=== PATIENT | female | born 1955 | race Caucasian/White ===

== ENCOUNTER 2024-08-04 23:47 | Emergency (ER) | payer SELFPAY ==
[2024-08-04 23:58] VITALS: BP 87/57; PULSE 119; RESP 20; TEMP 36.9; O2SAT 100
--- NOTE | 2024-08-05 00:28 | ED_ITS ---
HPI - General Adult General Chief complaint: Epistaxis/Nosebleed Stated complaint: nose bleed Time Seen by Provider: 08/05/24 00:04 Source: patient Mode of arrival: ambulatory Limitations: no limitations History of Present Illness HPI narrative: 69-year-old female with history of frequent nosebleeds presents to the ED with nosebleed from the left nostril started 3 hours prior to arrival. No trauma or injury. No recent fever or illness. Not anticoagulated. Has seen ENT in the past. Reports that she has been told that she has a thin nasal septum and lining. She has had cautery 2-3 years ago hand found it very effective. Unfortunately, it seems to have worn off. She has been getting slight oozing of the nose daily for the past few days. She recently moved into a new place. The weather has turned very cold and dry. She reports that the area is also very dry in her new living arrangement. No breathing difficulty, fever. Does feel mildly nauseated from the blood running down the back of her throat but otherwise well. Has tried applying nasal pressure with no significant improvement. Past medical history notable for hyperlipidemia, type 2 diabetes. No known drug allergies. Nonsmoker. ROS is notable for the HEENT symptoms only. Denies other HEENT, generalized, respiratory, skin or hematological changes. Related Data Home Medications ?Medication ?Instructions ?Recorded ?Confirmed gabapentin 100 mg capsule 200 mg PO BID 08/05/24 08/05/24 metformin 500 mg tablet 500 mg PO BID 08/05/24 08/05/24 rosuvastatin 10 mg tablet 10 mg PO QPM 08/05/24 08/05/24 trazodone 100 mg tablet 100 mg PO QPM 08/05/24 08/05/24 Allergies Allergy/AdvReac Type Severity Reaction Status Date / Time erythromycin base Allergy Unknown Verified 08/05/24 00:38 Penicillins Allergy Unknown Verified 08/05/24 00:38 STATINS AdvReac Mild Uncoded 08/05/24 00:38 Exam Const: Vital Signs, click to edit/add: Vital Signs - 24 hr 08/04/24 23:58 Temperature 98.5 F Pulse Rate [Pulse Oximeter] 119 H Respiratory Rate 20 Blood Pressure [Ri ght Upper Arm] 87/57 L Pulse Oximetry 100 Oxygen Delivery Me thod Room Air Documenting provider has reviewed patient's vital signs: yes Common normals: no apparent distress and alert General appearance: cooperative, comfortable and well kempt HENMT: Common normals: normocephalic and head/scalp atraumatic Head and scalp: normocephalic and atraumatic Face and sinus: sinuses nontender and face symmetric Mouth: oral and palatal mucosa normal Throat: posterior oropharynx normal Other: Right naris nasal septum appear normal. Left Kohler has an area of bleeding at the anterior plexus along the nasal septum, typical area. Slight oozing, does not appear to be a large arterial bleeder. No blood clots or heavy bleeding down the back of the throat. Eye: Common normals: conjunctivae normal General eye: normal appearance of both eyes Conjunctiva: conjunctiva(e) normal Neck & C-Spine: Common normals: full ROM and no lymphadenopathy General: normal visual inspection Resp: Common normals: normal respiratory effort and no use of accessory muscles Effort & inspection: able to speak in complete sentences Cardio: Common normals: regular rate, regular rhythm, S1 normal heart sound and S2 normal heart sound Rate: regular rate Rhythm: regular rhythm Heart sounds: S1 normal and S2 normal Extremity: Common normals: normal to inspection and normal capillary refill Neuro: Sensorium/orientation: alert Speech: speech normal Motor exam: no movement abnormalities noted Psych: Appearance: well kempt Attitude: engaged Activity/motor behavior: appropriate eye contact Insight: insight good Judgement: judgment good Skin: Common normals: no rashes or lesions noted General skin exam: no rashes or lesions noted Course Course ED Course: Nodes examined, no signs of trauma or injury. Small area of bleeding noted, has not responded to pressure in 3 hours at home. Counseled patient on options. She is adamant that she does not want nasal balloon. Because of this, offered trial of TXA and clamping to see if this would be effective but counseled patient that it is more likely to fail or rebleed. Nose is re-examined, 2 mL of TXA air applied into the Kohler, 1st loosely sprayed, 2nd applied directly on a Q- tip and then nasal clamp applied. Will re-examine in 5-10 minutes. Reevaluation(s) Time of Reevaluation #1: 01:31 Reevaluation #1: TXA and nasal clamp were removed after 30 minutes, re-examined with no further signs of bleeding. Reexamined 20 minutes later with still no signs of bleeding. Patient feeling well. We went over her home regimen. She is already using nasal saline gel and Vaseline to the nares. I encouraged her to continue doing this but also consider adding a vaporizer to increasing humidity. She is given a nasal clamp. If the bleeding restarts, she is to apply this for 30 minutes and lie down. If the bleeding returns, return to the emergency department. We discussed the nasal balloon which she would like to avoid at this time. I let her know that should the bleeding restarts, we would need to use the nasal balloon. She verbalized understanding and agreement. Consider ENT appointment if bleeding persists for repeat nasal cautery. She verbalizes understanding and agreement. Vital Signs Vital signs: Initial Vital Signs Temperature 98.5 F 08/04/24 23:58 Temperature Source Temporal Artery Scan 08/04/24 23:58 Pulse Rate 119 H 08/04/24 23:58 Respiratory Rate 20 08/04/24 23:58 Blood Pressure 87/57 L 08/04/24 23:58 Blood Pressure Mean 67 L 08/04/24 23:58 Pulse Oximetry 100 08/04/24 23:58 Oxygen Delivery Method Room Air 08/04/24 23:58 Vital Signs Temperature 98.5 F 08/04/24 23:58 Pulse Rate 119 H 08/04/24 23:58 Respiratory Rate 20 08/04/24 23:58 Blood Pressure 87/57 L 08/04/24 23:58 Pulse Oximetry 100 08/04/24 23:58 Oxygen Delivery Method Room Air 08/04/24 23:58 Temperature 98.5 F 08/04/24 23:58 Pulse Rate 119 H 08/04/24 23:58 Respiratory Rate 20 08/04/24 23:58 Blood Pressure 87/57 L 08/04/24 23:58 Pulse Oximetry 100 08/04/24 23:58 Oxygen Delivery Method Room Air 08/04/24 23:58 Medications Administered Medications: Discontinued Medications Generic Name Dose Route Start Last Admin Trade Name Freq PRN Reason Stop Dose Admin Tranexamic Acid 1,000 mg 08/05/24 00:21 08/05/24 00:33 Tranexamic Acid 100 Mg/Ml Inj TOPICAL 08/05/24 00:22 1,000 mg ONCE ONE Administration Discharge Plan Discharge Clinical Impression: Epistaxis Patient Disposition: Home, Self-Care Condition: Improved Instructions: Nosebleed (ED) Additional Instructions: As we discussed, no nose bleed was from the left anterior septum, the most common area for nosebleeds. You are correct, the skin overlying this network of blood vessels is very thin. Keep using your nasal saline gel and Vaseline as we discussed. If the nose starts bleeding again, apply the clamp that you were given, lie down for 30 minutes. If the bleeding does not stop, please come back in to the emergency department. We did discuss the possibility of a nasal balloon which you declined at this time. We should reconsider that if the bleeding restarts. It is okay to use Tylenol 1000 mg every 6 hours as needed for discomfort. Try to avoid blowing the nose, aggressive wiping for the next 12 hours. If you continue to have repeat nosebleeds, I recommend that you follow-up with our ear nose and throat provider, Dr. Chu for a repeat nasal cautery. Activity Level: Activity as Tolerated Discharge Diet: Regular Prescriptions: No Action metformin 500 mg tablet 500 mg PO BID trazodone 100 mg tablet 100 mg PO QPM gabapentin 100 mg capsule 200 mg PO BID rosuvastatin 10 mg tablet 10 mg PO QPM Follow Up/Referrals: Sisi Hopkins MD [Primary Care Provider] - Stand Alone Forms: [facility] Info Instructions
[2024-08-05] MEDS: TRANEXAMIC ACID 100 MG/ML INJ 1000 MG TOPICAL (00:33)
== END 2024-08-05 02:08 | disposition home or self-care (01) ==
PROVIDERS: Emergency Provider Family Medicine; PCP Family Medicine
DX: R04.0 Epistaxis (principal)
CPT/HCPCS: 30901; 99283